=== PATIENT | female | born 1980 | race Caucasian/White ===

== ENCOUNTER 2020-10-05 13:35 | Emergency (ER) | payer OTHER ==
[2020-10-05 14:43] LABS: HEMOGLOBIN 14.4 gm/dl (12.3-15.3); RED BLOOD COUNT 4.81 M/UL (4.00-5.10); WHITE BLOOD COUNT 7.3 K/UL (4.5-11.0)
[2020-10-05 15:06] LABS: BUN/CREATININE RATIO 16 (0-10)
== END 2020-10-05 19:23 | disposition home or self-care (01) ==
LOC: ER1 13:35
PROVIDERS: Family Medicine
DX: R20.2 Paresthesia of skin (principal); R20.0 Anesthesia of skin; F17.200 Nicotine dependence, unspecified, uncomplicated
CPT/HCPCS: 70496; 70498; 71260; 80053; 80307; 81001; 82607; 82746; 85025; 99284; Q9967